=== PATIENT | male | born 1970 | race Caucasian/White ===

== ENCOUNTER 2023-09-01 18:24 | Emergency (ER) | payer OTHER, SELFPAY ==
--- NOTE | 2023-09-01 | ECG_ITS ---
Test Reason : chest pain Blood Pressure : / mmHG Vent. Rate : 085 BPM Atrial Rate : 085 BPM P-R Int : 184 ms QRS Dur : 102 ms QT Int : 374 ms P-R-T Axes : 051 -67 017 degrees QTc Int : 445 ms Normal sinus rhythm Left axis deviation Abnormal ECG No previous ECGs available Referred By: Generic ED Physician Electronically Signed By:Abisai Roman
[2023-09-01 18:31] VITALS: BP 214/110; PULSE 88; O2SAT 98
[2023-09-01 18:35] VITALS: BMI 46.0
[2023-09-01 18:38] VITALS: BP 155/85; PULSE 90; RESP 18; TEMP 36.5; O2SAT 94
[2023-09-01 18:47] LABS: MANUAL DIFF FLAG NO
[2023-09-01 18:49] LABS: Basophils Percent Auto 0.3 % (0-2); Eosinophils Absolute Auto 0.1 X10*3/uL (0.0-0.4); Eosinophils Percent Auto 1.2 % (0-4); Hematocrit 42.9 % (42.0-52.0); Hemoglobin 15.3 g/dl (14.0-18.0); Imm Gran Abs Auto 0.01 X10*3/uL (0.00-0.03); Imm Gran Pct Auto 0.2 % (0.0-0.4); Lymphocytes Percent Auto 17.7 % (20-40); Mean Corpuscular HGB Conc 35.7 g/dl (31.0-36.0); Mean Corpuscular Hemoglobin 31.5 pg (27.0-33.0); Mean Corpuscular Volume 88.3 fL (80.0-98.0); Mean Platelet Volume 10.5 fL (9.4-12.4); Monocytes Absolute Auto 0.4 X10*3/uL (0.1-1.2); Monocytes Percent Auto 6.2 % (2-11); Neutrophils Absolute Auto 4.3 x10*3/uL (2.0-8.3); Neutrophils Percent Auto 74.4 % (45-73); Platelet Count 193 X10*3/uL (160-400); Red Blood Count 4.86 X10*6/uL (4.60-5.80); Red Cell Distribution Width 12.9 % (11.0-16.0); White Blood Count 5.8 X10*3/uL (4.8-10.8)
[2023-09-01 19:02] LABS: Alanine Aminotransferase 58 U/L (0-40); Albumin Level 3.9 g/dL (3.5-5.0); Alkaline Phosphatase 81 U/L (39-117); Anion Gap 11 (12-20); Aspartate Amino Transferase 48 U/L (5-37); Bilirubin Total 0.7 mg/dL (0.0-1.0); Blood Urea Nitrogen 12 mg/dL (9-16); Carbon Dioxide 25 mmol/L (22-29); Chloride 109 mmol/L (96-108); Creatinine Clr Calc Pharmacy 136.9; Estimated Glomerular Filt Rate > 60; Glucose Random 213 mg/dL (60-115); Potassium 3.5 mmol/L (3.3-5.1); Sodium 141 mmol/L (135-145); Total Protein 7.2 g/dL (6.5-8.0)
[2023-09-01 19:07] LABS: B Type Natriuretic Peptide < 10 pg/mL (<100)
[2023-09-01 19:11] LABS: Troponin-I High Sensitivity < 2.7 ng/L (<3.5-35.0)
--- NOTE | 2023-09-01 19:15 | PC.NURSE ---
pt biba from working d/t sudden onset dizziness and right sided chest pain that radiates to the right side of back. pt also verbalizing lightheadedness. denies change in vision. EMS administered 324mg. pt verbalizing chest pain has subsided s/p medication administration. pt still verbalizing feeling dizzy/lightheaded. 20gIV placed in the left AC - labs obtained/sent to lab. ekg performed by tech. pt waiting to be seen by ED provider. slight wob noted. respirations even/slightly labored. plan of care ongoing. call schulte placed within reach.
[2023-09-01 20:00] VITALS: BP 127/77; PULSE 76; RESP 11; TEMP 36.8; O2SAT 94
--- NOTE | 2023-09-01 21:02 | ED_ITS ---
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 He denies any chest pain until he got in the EMS truck. At this time patient is feeling much better. Related Data Allergies Allergy/AdvReac Type Severity Reaction Status Date / Time No Known Allergies Allergy Verified 09/01/23 18:36 Review of Systems 2 Review of Systems: Pertinent positives and negatives as stated in HPI [facility] Past Medical History Source: nursing notes reviewed Social History Social History Smoked in Last 30 Days: No Use of substances other than those prescribed or required for medical reasons: No Advance Directives: No Advance Directives Information Provided: No Do you have a plan to hurt others: No Plan Physical Exam 2 Vital Signs: Vital Signs: Last Vital Signs Temp 97.1 F 09/01/23 22:00 Pulse 74 09/02/23 00:20 Resp 16 09/02/23 00:20 BP 154/89 H 09/02/23 00:20 Pulse Ox 97 09/02/23 00:20 O2 Del Method Room Air 09/02/23 00:20 BMI result Body Mass Index 46.0 VITAL SIGNS: Reviewed. GENERAL: Elevated BMI, Well developed, well nourished, in no acute distress. HEAD: Normocephalic/atraumatic EYES: PERRLA, EOMI EARS: Ext canals without abnormality NOSE: Nares patent bilateral OROPHARYNX: no oral lesions noted, posterior pharynx clear NECK: Supple, no adenopathy LUNGS: Normal breath sounds. No adventitious sounds or accessory muscle use. SpO2<95> CARDIOVASCULAR: Regular rate and rhythm without noted murmurs, no JVD or lower extremity edema. ABDOMEN: Soft, non-tender, non-distended with bowel sounds. MUSCULOSKELETAL: No tenderness, deformities, or effusions noted on gross inspection. EXTREMITIES: No cyanosis, clubbing or edema. SKIN: Inspection of the skin reveals no rashes NEUROLOGIC: Alert and oriented x 4. Strength and sensation to light touch were grossly intact x 4. Medications Administered Discontinued Medications Generic Name Dose Route Start Last Admin Trade Name Freq PRN Reason Stop Dose Admin Sodium Chloride 1,000 mls @ 999 mls/hr 09/01/23 23:15 09/02/23 01:04 Ns IV 09/02/23 00:15 Infused .Q1H1M TRACY Infusion Medical Decision Making Medical Decision Making MDM Narrative: 53-year-old male with history and clinical presentation, DDX: Dehydration, heat exhaustion, lower clinical suspicion for cardiopulmonary etiology I reviewed all investigations and hematologic indices are negative for leukocytosis/anemia/thrombocytopenia. Chemistry indices are negative for VIRIDIANA/electrolyte or significant liver enzyme derangements, suspect the elevated transaminases that are observed are secondary to fatty liver as patient has no abdominal pain and no complaints of nausea and vomiting. High sensitivity troponin is noted to be undetectable and there are no acute changes on EKG. Urinalysis negative for UTI or hematuria. 2310: Pt now reports lightheadedness once again. Provided patient with IV fluid bolus and on re-evaluation he is feeling much better and is discharged home. Serial troponins are negative. Differential Diagnosis Differential Diagnoses: The differential diagnosis associated with the presentation includes Please see the discussion above Admission/Observation Consideration of admission/observation: Escalation of care including admission/observation considered Please see the discussion above Lab Data [facility] Lab Attestation statement: I reviewed the patient's lab results. Please see the discussion above 09/01/23 18:43 09/01/23 18:43 Labs: Lab Results 09/01/23 09/01/23 09/01/23 Range/Units 18:43 21:49 23:21 WBC 5.8 (4.8-10.8) X10*3/uL RBC 4.86 (4.60-5.80) X10*6/uL Hgb 15.3 (14.0-18.0) g/dl Hct 42.9 (42.0-52.0) % MCV 88.3 (80.0-98.0) fL MCH 31.5 (27.0-33.0) pg MCHC 35.7 (31.0-36.0) g/dl RDW 12.9 (11.0-16.0) % Plt Count 193 (160-400) X10*3/uL MPV 10.5 (9.4-12.4) fL Immature Gran % (Auto) 0.2 (0.0-0.4) % Neut % (Auto) 74.4 H (45-73) % Lymph % (Auto) 17.7 L (20-40) % [place] % (Auto) 6.2 (2-11) % Eos % (Auto) 1.2 (0-4) % Baso % (Auto) 0.3 (0-2) % Lymph # (Auto) 1.0 L (1.2-4.9) X10*3/uL [place] # (Auto) 0.4 (0.1-1.2) X10*3/uL Eos # (Auto) 0.1 (0.0-0.4) X10*3/uL Baso # (Auto) 0.0 (0.0-0.2) X10*3/uL Abs Immat Gran (auto) 0.01 (0.00-0.03) X10*3/uL Absolute Neuts (auto) 4.3 (2.0-8.3) x10*3/uL Absolute Nucleated RBC 0.000 (0.0-0.012) X10*3/uL Nucleated RBC % (auto) 0.0 (0.0-0.2) /100WBC Sodium 141 (135-145) mmol/L Potassium 3.5 (3.3-5.1) mmol/L Chloride 109 H (96-108) mmol/L Carbon Dioxide 25 (22-29) mmol/L Anion Gap 11 L (12-20) BUN 12 (9-16) mg/dL Creatinine 1.04 (0.5-1.4) mg/dL Estim Creat Clear Calc 136.9 Estimated GFR > 60 Random Glucose 213 H (60-115) mg/dL Calcium 9.0 (8.4-10.2) mg/dL Total Bilirubin 0.7 (0.0-1.0) mg/dL AST 48 H (5-37) U/L ALT 58 H (0-40) U/L Alkaline Phosphatase 81 (39-117) U/L Troponin I High Sens < 2.7 < 2.7 (<3.5-35.0) ng/L B-Natriuretic Peptide < 10 (<100) pg/mL Total Protein 7.2 (6.5-8.0) g/dL Albumin 3.9 (3.5-5.0) g/dL Urine Color Dark Yellow Urine Appearance Clear Urine pH 6.5 (5.0-9.0) Ur Specific Peetz >= 1.030 H (1.005-1.025) Urine Protein Trace (Neg-Trace) mg/dL Urine Glucose (UA) 250 H (Negative) mg/dL Urine Ketones Trace (Negative) mg/dL Urine Blood Negative (Negative) Urine Nitrite Negative (Negative) Ur Leukocyte Esterase Negative (Negative) Urine RBC 0-2 (0-2) /HPF Urine WBC 0-5 (0-5) /HPF Ur Squamous Epith Cells 0-2 (0-2) /HPF Urine Bacteria None Seen (None Seen) Hyaline Casts 0-2 (0-2) /LPF Independent Interpretation I performed an independent interpretation of an: EKG Interpretation: Normal sinus rhythm, HR-85, no STEMI, DE/QRS/QTC is within normal limits. Critical Care Time Critical Care Time Critical Care Time: Yes Total Critical Care Time: 30 Attestation: I personally attest to this time spent taking care of the patient. Discharge Plan Discharge Clinical Impression: Light-headedness, Heat exhaustion, Dehydration Patient Disposition: Home, Self-Care Instructions: Dehydration (ED), Lightheadedness (ED), Heat Exhaustion (ED) Additional Instructions: Resume all home medications as prescribed. Follow-up with your primary care doctor. Print Language: Czech
[2023-09-01 22:00] VITALS: BP 144/85; PULSE 72; RESP 17; TEMP 36.2; O2SAT 95
[2023-09-01 22:03] LABS: Appearance Urine Clear; Color Urine Dark Yellow; Glucose Urine UA 250 mg/dL (Negative); Leukocyte Esterase Urine Negative (Negative); Nitrite Urine Negative (Negative); PH 6.5 (5.0-9.0); Specific Gravity - Urine >= 1.030 (1.005-1.025); Urine Blood Negative (Negative); Urine Ketones Trace mg/dL (Negative); Urine Protein Trace mg/dL (Neg-Trace)
[2023-09-01 22:08] LABS: Bacteria Urine None Seen (None Seen); Hyaline Casts Urine 0-2 /LPF (0-2); RBC Urine 0-2 /HPF (0-2); Squamous Epithelial Cell Urine 0-2 /HPF (0-2); WBC Urine 0-5 /HPF (0-5)
[2023-09-01] MEDS: 0.9 % Sodium Chloride 1,000 ML 999 ML IV (23:15)
--- NOTE | 2023-09-01 23:18 | PC.NURSE ---
pt reporting light headed/dizziness, MD aware, IVF started
[2023-09-02 00:03] LABS: Troponin-I High Sensitivity < 2.7 ng/L (<3.5-35.0)
[2023-09-02 00:20] VITALS: BP 154/89; PULSE 74; RESP 16; O2SAT 97
[2023-09-02 01:44] VITALS: BP 152/87; PULSE 70; RESP 15; TEMP 36.6; O2SAT 95
[2023-09-02 01:48] VITALS: BP 152/87; PULSE 70; RESP 15; TEMP 36.6; O2SAT 95
== END 2023-09-02 01:59 | disposition home or self-care (01) ==
PROVIDERS: Emergency Provider Student in an Organized Health Care Education/Training Program
DX: E86.0 Dehydration (principal); R42 Dizziness and giddiness; T67.5XXA Heat exhaustion, unspecified, initial encounter; X58.XXXA Exposure to other specified factors, initial encounter; R07.9 Chest pain, unspecified; Y93.9 Activity, unspecified; Y92.9 Unspecified place or not applicable; Y99.0 Civilian activity done for income or pay
CPT/HCPCS: 36415; 80053; 81001; 83880; 84484; 85025; 93005; 96360; 96361; 99284; 99285

== ENCOUNTER → 2023-09-01 18:49 | Outpatient (BNV) | payer OTHER, SELFPAY | PROVIDERS: Emergency Provider Student in an Organized Health Care Education/Training Program; Visit Provider Internal Medicine Cardiovascular Disease | DX: R07.9 Chest pain, unspecified (principal); R94.31 Abnormal electrocardiogram [ECG] [EKG] | CPT/HCPCS: 93010 ==

== ENCOUNTER 2024-10-23 08:59 | Emergency (ER) | payer OTHER, SELFPAY ==
[2024-10-23] VITALS (12 sets, daily range): BP systolic 118–156; BP diastolic 70–97; PULSE 69–103; RESP 12–22; TEMP -17.7–36.7; O2SAT 88–98; BMI 46.5
--- NOTE | ~2024-10-23 | CT_ITS ---
CLINICAL HISTORY: neck pain CT cervical spine without contrast Comparison: None provided Findings: Vertebral alignment is within normal limits. No significant degenerative change. No acute fractures or dislocations. No acute findings on limited view of the intracranial contents. No cervical fluid collections or masses. No consolidation or effusion at the lung apices. IMPRESSION: No acute findings. This document has been electronically signed by: Hemal Phoenix MD on 10/23/2024 11:09:02
--- NOTE | ~2024-10-23 | CT_ITS ---
CLINICAL HISTORY: fall unclear head strike CT head without contrast Comparison: None provided Findings: No intra-axial mass, midline shift, hydrocephalus, or acute hemorrhage. No significant atrophy-like change or white matter disease. There is no sinus or mastoid fluid. The orbits are within normal limits. There is no acute fracture. IMPRESSION: 1. No acute intracranial findings. This document has been electronically signed by: Hemal Phoenix MD on 10/23/2024 11:10:50
--- NOTE | ~2024-10-23 | CT_ITS ---
CLINICAL HISTORY: left sided flank trauma + guerin turners CT abdomen and pelvis with contrast Comparison: None provided Findings: The lung bases exhibit dependent changes. The liver, gallbladder, spleen, adrenal glands and pancreas are unremarkable. Kidneys demonstrate no lesion or obstructive uropathy. The bladder is unremarkable. The prostate gland is normal. No retroperitoneal or intraperitoneal hemorrhage. No bowel obstruction or free air. Normal appendix. No acute osseous findings. Degenerative changes seen within the spine, with multilevel central canal stenosis most pronounced at L4-L5. Impression: No evidence of traumatic injury involving the solid organs or hollow viscera of the abdomen or pelvis. Chronic changes. This document has been electronically signed by: Hemal Phoenix MD on 10/23/2024 11:09:21
--- NOTE | ~2024-10-23 | CT_ITS ---
CLINICAL HISTORY: Left sided chest trauma CT chest with contrast Comparison: None provided Findings: No evidence of mediastinal vascular injury. The heart is nonenlarged. No pericardial effusion, mediastinal adenopathy or aneurysm. The lungs demonstrate be tendon changes. There is no pneumothorax or effusion. No definite suspicious lung lesion. No displaced rib fracture identified. Reformatted imaging of the thoracic spine demonstrates no acute fracture. The sternum is intact. Upper abdomen detailed on abdominal CT same day. Impression: No acute findings. This document has been electronically signed by: Hemal Phoenix MD on 10/23/2024 11:10:42
--- NOTE | 2024-10-23 09:06 | ED.GENADULT ---
HPI - General Adult General Chief complaint: Trauma Stated complaint: FALL,BACK PAIN PER EMS Time Seen by Provider: 10/23/24 09:00 Source: patient and EMS Mode of arrival: EMS Limitations: no limitations History of Present Illness ED Provider: MARIA T Yang HPI narrative: This is a 54-year-old male history of obesity, anxiety who presents to the emergency department via ambulance status post fall in his bathroom just prior to arrival. Patient reports he went to get up after going to the bathroom, his legs got caught while standing, he fell back and hit his mid back against the toilet. Since then he has not been able to ambulate he has been having severe pain to his flank region worse on the left, reports a wraps to the abdomen. He tells me pain is 10/10, he is screaming in pain. He is also having difficulty breathing due to the pain. No head strike or LOC. he was unable to move himself from EMS stretcher to hospital stretcher. Reports all movement causes severe pain. He is not anticoagulated. Denies chest pain, nausea, vomiting, fevers, chills, headache, vision changes, dizziness and weakness. No urinary or bowel incontinence or retention. No numbness or tingling Related Data Allergies Allergy/AdvReac Type Severity Reaction Status Date / Time Opioids - Morphine Analogues AdvReac Irritable Verified 10/23/24 09:13 Review of Systems Review of Systems: Yes all other systems are reviewed and are negative [facility] Past Medical History Attestation statement: The following information was validated with the patient. Source: old records reviewed and nursing notes reviewed Social History Social History Advance Directives: No Advance Directives Information Provided: Yes Do you have a plan to hurt others: No Plan Physical Exam ED Exam Exam: Appearance: Alert.? Oriented X3.? + patient appears extremely uncomfortable Head: Normocephalic, atraumatic, no step-offs or deformities Eyes: Pupils equal, round and reactive to light.? ENT: Pharynx normal.? Neck: Normal inspection.? Neck supple.? CVS: Normal heart rate and rhythm.? Pulses normal.? Respiratory: No respiratory distress.? Breath sounds normal.? Abdomen: Soft and + TTP to left side of abdomen and left flank .? Skin: Skin warm and dry.? Normal skin color.? Normal skin turgor.? Extremities: No lower extremity edema.? No calf ttp. 5/5 strength to bilateral upper and lower extremities Back: No midline tenderness, no C-spine tenderness, full range of motion, no CVA tenderness bilaterally Neuro: Oriented X 3.? No motor deficit.? No sensory deficit. CN 2-12 intact Vital Signs: Vital Signs - 24 hr 10/23/24 09:08 10/23/24 09:15 10/23/24 10:00 Temperature 97.9 F 97.9 F Pulse Rate 78 78 Respiratory Rate 16 16 22 H Blood Pressure 147/80 H 147/80 H Pulse Oximetry 92 92 Oxygen Delivery Method Room Air Room Air Oxygen Flow Rate 10/23/24 10:04 10/23/24 10:05 10/23/24 10:05 Temperature Pulse Rate 88 Respiratory Rate 12 Blood Pressure 142/97 H Pulse Oximetry 94 88 L 96 Oxygen Delivery Method Room Air Room Air Nasal Cannula Oxygen Flow Rate 5 10/23/24 10:25 10/23/24 10:54 Temperature Pulse Rate 103 H Respiratory Rate 16 18 Blood Pressure 133/84 Pulse Oximetry 93 Oxygen Delivery Method Nasal Cannula Oxygen Flow Rate 2 BMI result Body Mass Index 46.5 Course Reevaluation(s) Reevaluation #1: CBC unremarkable. Chemistry with no acute findings needing intervention. CRP mildly elevated 0.71. CT scans were obtained, however patient was lying on his side due to pain. Initially he was refusing fentanyl for pain or Dilaudid, then he was agreeable to receive fentanyl. My attending and I did a fast at the bedside, this exam was limited secondary to body habitus. No free fluid noted. There is a hematoma noted in the lower left lumbar region. Upon doing the exam patient did have an episode of hypoxia likely secondary to narcotics. He was put on oxygen and his oxygen level did improve significantly. Time: 10:00 Reevaluation #2: Hematoma on back appears to be getting larger. Time: 10:14 Reevaluation #3: CT scans were read as unremarkable however he did have a conversation with radiologist who does report that there could be a fracture at L5 endplate. Patient very tender on exam, he is unable to move on his own, he is unable to roll. He is unable to ambulate. Pain is severe. Requesting more pain medicine. MRI was recommended however MRI is not here at this time patient in severe pain nonambulatory. Will discuss this with [facility] trauma. Time: 12:19 Additional Reevaluation(s): Patient accepted at [facility] as a trauma consult Dr. Rebolledo accepting provider. Patient agreeable to this plan 1242 Again patient is requesting something for pain, he is in excruciating pain is unable to move from the stretcher or roll. Will proceed to giving him morphine and Zofran at this time. Medications Administered Discontinued Medications Generic Name Dose Route Start Last Admin Trade Name Santosq PRN Reason Stop Dose Admin Diazepam 5 mg 10/23/24 09:59 10/23/24 10:02 Diazepam 10 Mg/2 Ml Cartridge IVPUSH 10/23/24 10:00 5 mg STAT ONE Administration Fentanyl 50 mcg 10/23/24 09:40 10/23/24 09:55 Fentanyl Citrate/Pf 100 Mcg/2 Ml Vial IVPUSH 10/23/24 09:41 50 mcg ONCE ONE Administration Protocol Fentanyl 50 mcg 10/23/24 09:55 10/23/24 10:00 Fentanyl Citrate/Pf 100 Mcg/2 Ml Vial IVPUSH 10/23/24 09:56 50 mcg ONCE ONE Administration Protocol Fentanyl 50 mcg 10/23/24 10:47 10/23/24 10:54 Fentanyl Citrate/Pf 100 Mcg/2 Ml Vial IVPUSH 10/23/24 10:48 50 mcg ONCE ONE Administration Protocol Iohexol 100 ml 10/23/24 10:20 10/23/24 10:20 Iohexol 350 Mg/Ml 100 Ml Infus..Btl IV 10/23/24 10:21 100 ml ONCE ONE Administration Metoclopramide HCl 10 mg 10/23/24 10:18 10/23/24 10:23 Metoclopramide Hcl 10 Mg/2 Ml Vial IVPUSH 10/23/24 10:19 10 mg ONCE ONE Administration Morphine Sulfate 4 mg 10/23/24 09:03 10/23/24 09:31 Morphine Sulfate 4 Mg/Ml Cartridge IVPUSH 10/23/24 09:04 4 mg ONCE ONE Administration Protocol Ondansetron HCl 4 mg 10/23/24 09:12 10/23/24 09:31 Ondansetron Hcl 4 Mg/2 Ml Vial IVPUSH 10/23/24 09:13 4 mg ONCE ONE Administration Medical Decision Making Medical Decision Making [facility] Narrative: 0905 54 year old male presents s/p fall w/ severe left flank pain. Patient very uncomfortable. PE w/ + TTP to left side of abdomen and left flank. Patient appears very uncomfortable. History and physical exam concerning for traumatic injuries to chest, abdomen and pelvis will rule out internal hemorrhaging. Unlikely intracranial hemorrhage, cervical spine fracture. Other differentials include ecchymosis, hematoma. Plan- labs, imaging . Based off findings on physical exam a type and screen will be obtained in case this is a hemorrhage of some sort or expanding hematoma. Differential Diagnosis Differential Diagnoses: The differential diagnosis associated with the presentation includes (History and physical exam concerning for traumatic injuries to chest, abdomen and pelvis will rule out internal hemorrhaging. Unlikely intracranial hemorrhage, cervical spine fracture. Other differentials include ecchymosis, hematoma.) Admission/Observation Consideration of admission/observation: Escalation of care including admission/observation considered (possible ) Consult Healthcare Provider Management of the patient was discussed with: Corporate Traffic Manager ([facility] trauma) Lab Data [facility] Lab Attestation statement: I reviewed the patient's lab results. 10/23/24 11:21 10/23/24 09:22 Labs: Lab Results 10/23/24 10/23/24 10/23/24 Range/Units 09:09 09:22 11:21 WBC 5.7 8.0 (4.8-10.8) X10*3/uL RBC 5.05 4.98 (4.60-5.80) X10*6/uL Hgb 15.9 15.7 (14.0-18.0) g/dl Hct 45.6 44.3 (42.0-52.0) % MCV 90.3 89.0 (80.0-98.0) fL MCH 31.5 31.5 (27.0-33.0) pg MCHC 34.9 35.4 (31.0-36.0) g/dl RDW 13.0 12.9 (11.0-16.0) % Plt Count 166 173 (160-400) X10*3/uL MPV 10.9 11.0 (9.4-12.4) fL Immature Gran % (Auto) 0.3 0.4 (0.0-0.4) % Neut % (Auto) 60.3 80.0 H (45-73) % Lymph % (Auto) 30.9 13.9 L (20-40) % [place] % (Auto) 7.2 4.8 (2-11) % Eos % (Auto) 1.0 0.6 (0-4) % Baso % (Auto) 0.3 0.3 (0-2) % Lymph # (Auto) 1.8 1.1 L (1.2-4.9) X10*3/uL [place] # (Auto) 0.4 0.4 (0.1-1.2) X10*3/uL Eos # (Auto) 0.1 0.1 (0.0-0.4) X10*3/uL Baso # (Auto) 0.0 0.0 (0.0-0.2) X10*3/uL Abs Immat Gran (auto) 0.02 0.03 (0.00-0.03) X10*3/uL Absolute Neuts (auto) 3.5 6.4 (2.0-8.3) x10*3/uL Absolute Nucleated RBC 0.000 0.000 (0.0-0.012) X10*3/uL Nucleated RBC % (auto) 0.0 0.0 (0.0-0.2) /100WBC PT 11.6 (10.9-12.4) SEC INR 1.0 (0.9-1.1) Sodium 140 (135-145) mmol/L Potassium 3.8 (3.3-5.1) mmol/L Chloride 105 (96-108) mmol/L Carbon Dioxide 24 (22-29) mmol/L Anion Gap 15 (12-20) BUN 15 (9-16) mg/dL Creatinine 0.95 (0.5-1.4) mg/dL Estim Creat Clear Calc 145.1 Estimated GFR > 60 POC Glucose 223 H (60-115) mg/dL Random Glucose 219 H (60-115) mg/dL Calcium 9.1 (8.4-10.2) mg/dL Magnesium 1.7 (1.6-2.6) mg/dL Total Bilirubin 0.8 (0.0-1.0) mg/dL AST 45 H (5-37) U/L ALT 60 H (0-40) U/L Alkaline Phosphatase 94 (39-117) U/L Total Creatine Kinase 78 (38-174) U/L C-Reactive Protein 0.71 H (< or = 0.50) mg/dL Total Protein 7.4 (6.5-8.0) g/dL Albumin 4.3 (3.5-5.0) g/dL Blood Type A Positive Antibody Screen NEGATIVE Independent Interpretation I performed an independent interpretation of an: Ultrasound (bedside fast done ) and CT Scan (Possible L5 ) Radiology Impression Discussion of test interpretation with radiology: I have reviewed the radiologist's reading. (Discussed CT findings w/radiologist ) Independent Historian Clinical information obtained from an independent historian. History obtained from or confirmed by: EMS Prescription Management I considered prescription management with: Pain Medication Chronic Conditions Patient?s care impacted by: Other (obesity, anxiety ) Critical Care Time Critical Care Time Critical Care Time: Yes Total Critical Care Time: 55 Attestation: I attest to this time spent taking care of the patient, obtaining history, physical, reviewing labs, imaging, treatment of patients condition +/- specialist/hospitalist consult +/- procedure Discharge Plan Discharge Clinical Impression: Fall, Discoloration of skin of flank resembling ecchymosis, Abdominal pain, Hematoma Print Language: Yi
[2024-10-23 09:14] LABS: Glucose, Whole Blood 223 mg/dL (60-115)
[2024-10-23 09:27] LABS: MANUAL DIFF FLAG NO
[2024-10-23 09:47] LABS: Hematocrit 45.6 % (42.0-52.0); Hemoglobin 15.9 g/dl (14.0-18.0); Imm Gran Abs Auto 0.02 X10*3/uL (0.00-0.03); Imm Gran Pct Auto 0.3 % (0.0-0.4); Lymphocytes Absolute Auto 1.8 X10*3/uL (1.2-4.9); Mean Corpuscular HGB Conc 34.9 g/dl (31.0-36.0); Mean Corpuscular Hemoglobin 31.5 pg (27.0-33.0); Mean Corpuscular Volume 90.3 fL (80.0-98.0); NRBC Abs Auto 0.000 X10*3/uL (0.0-0.012); NRBC Pct Auto 0.0 /100WBC (0.0-0.2); Platelet Count 166 X10*3/uL (160-400); Red Blood Count 5.05 X10*6/uL (4.60-5.80); White Blood Count 5.7 X10*3/uL (4.8-10.8)
[2024-10-23 09:49] LABS: Alanine Aminotransferase 60 U/L (0-40); Albumin Level 4.3 g/dL (3.5-5.0); Alkaline Phosphatase 94 U/L (39-117); Anion Gap 15 (12-20); Aspartate Amino Transferase 45 U/L (5-37); Blood Urea Nitrogen 15 mg/dL (9-16); Calcium 9.1 mg/dL (8.4-10.2); Carbon Dioxide 24 mmol/L (22-29); Chloride 105 mmol/L (96-108); Creatinine Clr Calc Pharmacy 145.1; Estimated Glomerular Filt Rate > 60; Magnesium 1.7 mg/dL (1.6-2.6); Potassium 3.8 mmol/L (3.3-5.1); Sodium 140 mmol/L (135-145); Total Protein 7.4 g/dL (6.5-8.0)
[2024-10-23 09:51] LABS: INTERNATIONAL NORM RATIO 1.0 (0.9-1.1); Prothrombin Time 11.6 SEC (10.9-12.4)
[2024-10-23] MEDS: diazePAM 10 MG/2 ML CARTRIDGE 5 MG IVPUSH (10:02)
[2024-10-23] MEDS: iohexoL 350 MG/ML 100 ML INFUS..BTL IV (10:20)
[2024-10-23 11:26] LABS: MANUAL DIFF FLAG NO
[2024-10-23 11:30] LABS: Hematocrit 44.3 % (42.0-52.0); Hemoglobin 15.7 g/dl (14.0-18.0); Imm Gran Abs Auto 0.03 X10*3/uL (0.00-0.03); Imm Gran Pct Auto 0.4 % (0.0-0.4); Lymphocytes Absolute Auto 1.1 X10*3/uL (1.2-4.9); Mean Corpuscular HGB Conc 35.4 g/dl (31.0-36.0); Mean Corpuscular Hemoglobin 31.5 pg (27.0-33.0); Mean Corpuscular Volume 89.0 fL (80.0-98.0); NRBC Abs Auto 0.000 X10*3/uL (0.0-0.012); NRBC Pct Auto 0.0 /100WBC (0.0-0.2); Platelet Count 173 X10*3/uL (160-400); Red Blood Count 4.98 X10*6/uL (4.60-5.80); White Blood Count 8.0 X10*3/uL (4.8-10.8)
--- NOTE | 2024-10-23 13:17 | PC.NURSE ---
Addendum entered by Sirena Manzo RN 10/23/24 14:06: Follow up attempt made to complete RN to stucco laborer report. Call placed to [facility] @1400 to [phone]. This RN remained on the phone for 5:26 without answer--ringing only. Will attempt to call again at later time. Original Note: Pt to be ED to ED trauma transfer to [facility]. This RN attempts to call [facility] @ 1245 using [phone] (number provided by [facility] via email) with no answer. Second call placed to secondary number of [phone] in which was answered by a staff member reporting this number belongs to the OB staff lounge and was advised to call the main ED number. At 1248 this RN calls [facility] @ [phone] in attempt to complete RN to RN report. This RN remained on the phone for 5:18 without answer--ringing only. Second call placed @ 1312 using [phone] to complete RN to stucco laborer. This RN remained on the phone for 5:42 without answer--ringing only. Will attempt again at later time.
--- NOTE | 2024-10-23 15:19 | PC.NURSE ---
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 All belongings placed in Pt belongings bag and placed on the back of EMS stretcher to be transported with Pt. Original Note: [facility] arrives to transport Pt. RN report given. EMS aware this RN unable to get in touch with [facility]. Care of Pt relinquished to EMS Pt departs ED at approx. 1510
--- NOTE | 2024-10-23 15:34 | PC.NURSE ---
Pt wallet noted to be in room after pt had been transported to [facility] by EMS, wallet labeled and brought to security by this RN at this time.
== END 2024-10-23 15:10 | disposition short-term general hospital (02) ==
PROVIDERS: Physician Assistant; Emergency Provider Emergency Medicine; PCP Internal Medicine
DX: S30.0XXA Contusion of lower back and pelvis, initial encounter (principal); R51.9 Headache, unspecified; R07.89 Other chest pain; M54.50 Low back pain, unspecified; M54.2 Cervicalgia; R10.9 Unspecified abdominal pain; X58.XXXA Exposure to other specified factors, initial encounter; Y93.9 Activity, unspecified; Y92.9 Unspecified place or not applicable; Y99.8 Other external cause status; Z79.899 Other long term (current) drug therapy
CPT/HCPCS: 36415; 70450; 71260; 72125; 74177; 80053; 82550; 82947; 83735; 85025; 85610; 86140; 86850; 86900; 86901; 96374; 96375; 96376; 99285; J2270; J2405; J2765; J3010; J3360; Q9967

== ENCOUNTER → 2024-10-23 09:03 | Outpatient (BNV) | payer OTHER, SELFPAY | PROVIDERS: Emergency Provider Emergency Medicine; PCP Internal Medicine; Visit Provider Radiology Vascular & Interventional Radiology | DX: M48.062 Spinal stenosis, lumbar region with neurogenic claudication (principal); R07.82 Intercostal pain; M54.2 Cervicalgia; R51.9 Headache, unspecified | CPT/HCPCS: 70450; 71260; 72125; 74177 ==